=== PATIENT | female | born 1975 | race Caucasian/White ===

== ENCOUNTER → 2020-01-07 15:16 | Outpatient (CLI) | payer OTHER, SELFPAY ==
--- NOTE | ~2020-01-07 | US_ITS ---
US thyroid INDICATION: Thyroid goiter TECHNIQUE: Real-time sonographic images of the thyroid gland were obtained. COMPARISON: No prior studies for comparison. FINDINGS: The right thyroid lobe measures 3.4 x 0.8 x 0.7 cm. The left thyroid lobe measures 2.9 x 1 x 1 cm. There is normal echotexture and echogenicity throughout the thyroid gland. No discrete nodul es identified. Normal vascular flow is present. IMPRESSION: 1. Normal thyroid without discrete nodule or abnormal vascularity. Reviewed, dictated and finalized at location A.
== END ==
PROVIDERS: Visit Provider Internal Medicine Endocrinology, Diabetes & Metabolism
DX: E04.9 Nontoxic goiter, unspecified (principal)
CPT/HCPCS: 76536

== ENCOUNTER → 2020-02-07 14:04 | Outpatient (CLI) | payer OTHER, SELFPAY ==
--- NOTE | ~2020-02-07 | MM_ITS ---
EXAMINATION: MM screening kymberly BI w yayo HISTORY: Screening TECHNIQUE: Craniocaudal and mediolateral oblique 3-D tomosynthesis images were obtained and synthetic 2-D images were generated. CAD analysis was submitted and interpreted. COMPARISON: No prior mammogram is available for comparison at this institution. BREAST PARENCHYMAL COMPOSITION: There are scattered areas of fibroglandular density. FINDINGS: There is no evidence of suspicious mass, calcification, or architectural distortion to sugg est malignancy in either breast. There has been no suspicious interval change. IMPRESSION: 1. No mammographic evidence of malignancy. 2. Recommend routine screening mammography in one year. BI-RADS Category 1: Negative Reviewed, dictated and finalized at location A.
== END ==
PROVIDERS: PCP Nurse Practitioner Adult Health; Visit Provider Nurse Practitioner Adult Health
DX: Z12.31 Encounter for screening mammogram for malignant neoplasm of breast (principal)
CPT/HCPCS: 77063; 77067

== ENCOUNTER 2020-04-04 11:22 | Emergency (ER) | payer OTHER, SELFPAY ==
[2020-04-04 11:28] VITALS: BP 140/78; PULSE 87; RESP 15; TEMP 36.7; O2SAT 100
--- NOTE | 2020-04-04 12:06 | ED.EAR ---
HPI - Ear Problem General Chief complaint: Ear Stated complaint: Rash on Ears Time Seen by Provider: 04/04/20 12:00 Source: patient and RN notes reviewed Mode of arrival: ambulatory Limitations: no limitations History of Present Illness HPI Narrative: 44 year old female who present to [facility] care with complaints of having bilateral ear lobe swelling with itching behind both ears since Friday. Patient reports that she was outside all day on Friday and that evening is when she first noted the symptoms. Patient denies any new soaps, lotions, makeup, shampoo, no new food or medications, does not know of any exposure to any plants or other vegetation. Patient works from home and states that she has cleansed her headset and washed all of her masks thinking it could be from something on them. She denies any pain to her ears, no drainage, fevers or chills. Patient does take Zyrtec daily for seasonal allergies. MD Complaint: other (rash on ears) Location: bilateral Duration: intermittent Severity: mild Discharge from ear: Reports no Associated symptoms ear: ear swelling (lobes) Treatment prior to arrival: other (benadryl) Related Data Home Medications Medication Instructions Recorded Confirmed cetirizine [Zyrtec] 10 mg PO DAILY 04/04/20 04/04/20 levothyroxine [Tirosint] 112 mcg PO DAILY 04/04/20 04/04/20 lisinopril 5 mg PO DAILY 04/04/20 04/04/20 Allergies Allergy/AdvReac Type Severity Reaction Status Date / Time No Known Allergies Allergy Verified 11/19/18 10:41 Review of Systems Review of Systems: Narrative: CONSTITUTIONAL: Denies fever, chills, or sweats. EYES: Denies visual changes, redness, or discharge. ENT: Denies rhinorrhea, congestion, sore throat, or otalgia. CARDIOVASCULAR: Denies chest pain, palpitations, or edema. RESPIRATORY: Denies cough or dyspnea. GASTROINTESTINAL: Denies abdominal pain, nausea, vomiting, or diarrhea. GENITOURINARY: Denies dysuria or hematuria. SKIN: Positive reported rash or itching to area behind bilateral ears with swelling to earlobes MUSCULOSKELETAL: Denies back pain, joint pain, or myalgia. NEUROLOGIC: Denies headache, numbness, or weakness. PSYCHIATRIC: Denies anxiety or depression. All systems reviewed & are unremarkable except as noted in HPI and below PMFSH Past Medical History Medical History (Updated 04/06/20 @ 08:22 by Amaya Rachel NP) Hypertension Hypothyroid Seasonal allergies Surgical History Surgical History (Updated 04/06/20 @ 08:22 by Amaya Rachel NP) History of tubal ligation Family History Family History (Updated 12/23/13 @ 07:13 by DOCTOR UNKNOWN) Mother Hypertension Father Family history of elevated blood lipids Sibling Family history of muscular dystrophy Social History Social History (Updated 04/06/20 @ 08:22 by Amaya Rachel NP) Smoking status: Never smoker Second hand tobacco smoke exposure: No Alcohol intake: never Substance use: never Living arrangements: with family Gender identity (if verbalized by the patient): Female Comments At time of signature, agree with nursing past medical, surgical, social and family history. There is no relevant family history pertinent to the presenting complaint Exam Narrative: Exam Narrative: GENERAL: Well-appearing, well-nourished, and in no acute distress. HEAD: Normocephalic, atraumatic. EYES: PERRLA and EOMI. ENT: Nares clear, no rhinorrhea or epistaxis. Mucous membranes moist. Mild redness behind bilateral ears no rash noted minimal swelling to earlobes, TMs normal with good light reflex, throat pink no swelling or exudate no tonsillar enlargement NECK: Supple. No lymphadenopathy CHEST: Clear to auscultation. No respiratory distress. SaO2 100% on room air HEART: Regular rate and rhythm. No murmur heard. Normal peripheral pulses. ABDOMEN: Soft, nontender, nondistended, normal active bowel sounds. EXTREMITIES: Normal range of motion. No edema. SKIN: Warm, dry, no rash no
== END 2020-04-04 12:19 | disposition home or self-care (01) ==
PROVIDERS: Emergency Provider Registered Nurse; PCP Nurse Practitioner Adult Health
DX: L25.9 Unspecified contact dermatitis, unspecified cause (principal)
CPT/HCPCS: 99213; G0463

== ENCOUNTER 2022-08-16 08:23 | Emergency (ER) | payer OTHER, SELFPAY ==
[2022-08-16 08:33] VITALS: BP 125/60; PULSE 107; RESP 16; TEMP 37.2; O2SAT 99
--- NOTE | 2022-08-16 08:33 | ED.URI ---
HPI - URI/Sore Throat General Chief Complaint: Upper Respiratory Infection Stated Complaint: Sinus Time Seen by Provider: 08/16/22 08:33 Source: patient Mode of arrival: ambulatory Limitations: no limitations History of Present Illness HPI Narrative: Patient is a 46-year-old female that presents with sinus congestion, sinus pressure, sore throat and body aches since middle of last week. Patient states symptoms wax and wane depending on the weather. Patient takes a daily Zyrtec but has not helped her symptoms. Has not taken any other medications. Patient has been doing nasal rinses with no relief. Patient reports sinus drainage is yellow/green in color. Related Data Home Medications Medication Instructions Recorded Confirmed cetirizine 10 mg capsule (Zyrtec) 10 mg PO DAILY 04/04/20 08/16/22 levothyroxine 112 mcg capsule 112 mcg PO DAILY 04/04/20 08/16/22 (Tirosint) lisinopril 5 mg tablet 5 mg PO DAILY 04/04/20 08/16/22 Allergies Allergy/AdvReac Type Severity Reaction Status Date / Time No Known Allergies Allergy Verified 08/16/22 08:53 Review of Systems Review of Systems: All systems reviewed & are unremarkable except as noted in HPI and below Constitutional: Constitutional: Reports body ache(s), Denies fever(s), Denies headache(s), Denies malaise and Denies weakness Eyes: Eyes: Denies loss of vision ENT: Reports otalgia, Denies headache(s), Reports nasal congestion, Reports nasal discharge, Reports sinus pain and Reports sore throat Cardiovascular: Cardiovascular: Denies chest pain, Denies irregular heart rhythm and Denies dyspnea Respiratory: Respiratory: Denies cough and Denies dyspnea Gastrointestinal: Gastrointestinal: Denies abdominal pain, Denies melena, Denies hematochezia, Denies diarrhea, Denies nausea and Denies vomiting Musculoskeletal: Musculoskeletal: Denies back pain, Denies myalgias and Denies arthralgias Integumentary/Breasts: Skin/Breast: Denies pruritus and Denies rash Neurologic: Denies headache(s), Denies loss of vision and Denies weakness Psychiatric: Psychiatric: Reports no additional psychiatric complaints PMFSH Past Medical History Medical History (Updated 08/16/22 @ 09:04 by Ladonna Houston APRN) Hypertension Hypothyroid Seasonal allergies Surgical History Surgical History (Updated 04/06/20 @ 08:22 by Amaya Rachel NP) History of tubal ligation Family History Family History (Updated 12/23/13 @ 07:13 by DOCTOR UNKNOWN) Mother Hypertension Father Family history of elevated blood lipids Sibling Family history of muscular dystrophy Social History Social History (Updated 04/06/20 @ 08:22 by Amaya Rachel NP) Smoking status: Never smoker Second hand tobacco smoke exposure: No Alcohol intake: never Substance use: never Living arrangements: with family Gender identity (if verbalized by the patient): Female Comments At time of signature, agree with nursing past medical, surgical, social and family history. There is no relevant family history pertinent to the presenting complaint. Exam Const: General: cooperative, healthy appearing, comfortable, no acute distress and well nourished Nutritional Appearance: well nourished Orientation/consciousness: patient oriented x3 Limitations: no limitations HENMT: Head: normal to inspection, normocephalic and atraumatic Ears: hearing grossly normal bilaterally, external ears normal and TM's normal bilaterally Face/Nose/Sinus: Normal external nose present, Abnormal mucous membranes and turbinates present erythematous bilateral, Nasal discharge present mucoid, normal facial exam, sinuses nontender and face symmetric Face and sinus: normal facial exam, sinuses nontender and face symmetric Mouth: Yes Normal oral and palatal mucosa present, Yes lip normal and Yes moist mucous membranes Teeth and gingiva: dentition normal Throat: posterior oropharynx normal, tonsils normal, uvula midline and postnas
== END 2022-08-16 09:08 | disposition home or self-care (01) ==
PROVIDERS: Emergency Provider Nurse Practitioner Family; PCP Nurse Practitioner
DX: J32.9 Chronic sinusitis, unspecified (principal); I10 Essential (primary) hypertension; E03.9 Hypothyroidism, unspecified
CPT/HCPCS: 99213; G0463

== ENCOUNTER 2022-09-13 08:38 | Outpatient (CLI) | payer OTHER, SELFPAY ==
--- NOTE | 2022-09-13 08:51 | ECG_ITS ---
Measurements Intervals [place] Rate: 81 P: 15 AL: 131 QRS: 21 QRSD: 87 T: 15 QT: 366 QTc: 427 Interpretive Statements SINUS RHYTHM BASELINE ARTIFACT- I, II, III NORMAL ECG NO PREVIOUS ECG AVAILABLE FOR COMPARISON Electronically Signed On 09-13-2022 9:11:22 CDT by Nestor Burnham D.O.
[2022-09-13 10:28] LABS: Basophils Percent Auto 0.4 % (0.2-1.2); Eosinophils Absolute Auto 0.2 K/mm3 (0-0.3); Eosinophils Percent Auto 4.1 % (0-4.4); Hematocrit 39.4 % (37.0-47.0); Hemoglobin 12.7 g/dL (12.0-15.0); Immature Granulocyte Absolute 0.01 K/mm3 (0.00-0.031); Immature Granulocyte Percent A 0.2 % (0-0.5); Lymphocytes Absolute Auto 2.28 K/mm3 (0.9-3.2); Lymphocytes Percent Auto 44.3 % (18.3-44.2); Mean Corpuscular HGB Conc 32.2 g/dl (32-36); Mean Corpuscular Hemoglobin 30.1 pg (26-34); Mean Corpuscular Volume 93.4 fl (80-100); Mean Platelet Volume 9.8 fl (7.4-10.4); Monocytes Absolute Auto 0.5 K/mm3 (0.1-0.6); Monocytes Percent Auto 10.5 % (2.6-8.5); Neutrophils Absolute Auto 2.1 K/mm3 (1.3-6.7); Neutrophils Percent Auto 40.5 % (45.5-73.1); Platelet Count Result 368 k/mm3 (150-375); Red Blood Count 4.22 M/mm3 (4.2-5.4); White Blood Count 5.2 K/mm3 (4.5-10.0)
== END 2022-09-13 08:39 | disposition home or self-care (01) ==
LOC: ANHSURGERY 08:41
PROVIDERS: PCP Nurse Practitioner; Visit Provider Obstetrics & Gynecology
DX: N85.2 Hypertrophy of uterus (principal); I10 Essential (primary) hypertension; Z01.818 Encounter for other preprocedural examination
CPT/HCPCS: 36415; 85025; 86850; 86900; 86901; 93005

== ENCOUNTER 2022-09-20 02:22 | Day surgery (SDC) | payer OTHER, SELFPAY ==
[2022-09-11 14:00] VITALS: BMI 32.1
--- NOTE | 2022-09-11 14:01 | SUR.PREOP ---
Report to the Outpatient Waiting Room, entrance under the green pavilion located off [facility], at time _0930 on date _09/20/22 . Planned Procedure Time: _1130 . Time changes happen often and if your time is changed the preop area will call you the afternoon before. - You and your visitor will be asked to self-screen and do not enter if you have any COVID symptoms. - A mask is optional within the hospital at this time. Patients may have clear liquids (water, carbonated beverages, clear teas, apple juice) until 3 hours prior to surgery with a maximum of 20 ounces. - No food from midnight until time of surgery 0830 - Infants may have breast milk until 4 hours before surgery, infant formula 6 hours prior to surgery. - Children will be allowed to drink immediately following surgery. If applicable, please bring a bottle or sippy cup to assist with drinking. Juice, water, soda, and popsicles are readily available. For infants on formula, please bring formula the day of surgery. Pacifiers are allowed. Take the following medications with a SIP of water the morning of surgery: __LEVOTHYROXINE DO NOT STOP ANY OF YOUR OTHER PRESCRIPTION MEDICATIONS PRIOR TO SURGERY ?EXCEPT THE FOLLOWING Medications to discontinue per physician ____VITAMIN M65 Date to take last dose__09/17/22 Please no make-up, nail iranian, hairspray, perfume, deodorant, or body powder the day of surgery. No jewelry (including any body piercings) or valuables the day of surgery, leave them at home. Please take a shower or bath the night before, or the morning of, surgery with an antibacterial soap. Wear comfortable, loose fitting clothing. Children are encouraged to wear pajamas. - Jewelry must be removed prior to entering the operating room. Rings and piercings that are not removed may be cut off. - The hospital will not accept responsibility for valuables. - Please leave all valuables, including medications, at home the day of surgery. If you are going home after surgery, a licensed driver's license examiner must drive you home. - NO public transportation without another adult if you receive anesthesia. - We recommend that an adult stay with you for 24 hours following discharge. - We also recommend that you do not drive, make important decision, drink alcoholic beverages, or take any drugs that were not prescribed by your health care provider for at least 24 hours after your discharge time. For Pediatric surgeries, we recommend two adults accompany the child home. Follow any additional instructions given to you from your surgeon. If you or anyone in your household have experienced Covid symptoms in the past week, please notify your surgeon or the nurse liaison at the phone number below for possible testing. Telephone instructions given to BONNIE EDWARDS and asked if any additional questions and then verbalized understanding. Patient advised to call surgeon office or pre surgery nurse liaison [phone] if any additional questions.
--- NOTE | 2022-09-19 07:35 | P.HP_ITS ---
H&P: HPI History of Present Illness Date/Time: 09/19/22 07:35 Chief Complaint: pelvic pain/ enlarged uterus/uterine prolapse Narrative: 46-year-old female 2 para 2 who is admitted for robotic total hyste rectomy and bilateral salpingectomy secondary to enlarged uterus pelvic pain and uterine prolapse. Risks and benefits of this procedure reviewed including not exclusive of , aspiration pneumonia, bleeding, transfusion, perforation injury to bowel, bladder, ureters, or other internal organs with need for open laparotomy. She received the ACOG handout entitled hysterectomy as well as the de Tomasz handout. She had all questions answered. She asked to proceed PMFSH Past Medical History Medical History Hypertension Hypothyroid Seasonal allergies Surgical History Surgical History History of tubal ligation Family History Family History Mother Hypertension Father Family history of elevated blood lipids Sibling Family history of muscular dystrophy Social History Social History Smoking status: Never smoker Second hand tobacco smoke exposure: No Alcohol intake: never Substance use: never Living arrangements: with family Gender identity (if verbalized by the patient): Female Spiritual care concerns: No Meds Home Medications and Allergies Home Medications Medication Instructions Recorded Confirmed Type cetirizine 10 mg capsule (Zyrtec) 10 mg PO DAILY 04/04/20 09/11/22 History levothyroxine 112 mcg capsule 112 mcg PO DAILY 04/04/20 09/11/22 History (Tirosint) lisinopril 5 mg tablet 5 mg PO DAILY 04/04/20 09/11/22 History cyanocobalamin (vitamin B-12) 1,000 mcg DAILY 09/11/22 History 1,000 mcg/mL injection solution montelukast 10 mg tablet 10 mg PO DAILY 09/11/22 09/11/22 History (Singulair) Allergies Allergy/AdvReac Type Severity Reaction Status Date / Time No Known Allergies Allergy Verified 09/11/22 13:34 Exam Const: General: cooperative, healthy appearing, comfortable and overweight Orientation/consciousness: oriented to person, oriented to place and oriented to time HENMT: Head: normal to inspection Resp: Effort & Inspection: normal respiratory effort Cardio: Rate: regular rate Rhythm: regular rhythm Heart sounds: S1 normal heart sound present and S2 normal heart sound present GI: Inspection: normal to inspection : External Female Exam: normal external appearance Speculum Exam - Vagina: normal appearance of the vagina Speculum Exam - Cervix: normal appearance of the cervix ( second-degree prolapse present) Bimanual exam- vagina & uterus: enlarged and Uterine tenderness Bimanual Exam- Adnexa, other: normal adnexae Assessment and Plan Assessment and plan (1) Enlarged uterus: Code(s): N85.2 - Hypertrophy of uterus Status: Acute (2) Uterine prolapse: Code(s): N81.4 - Uterovaginal prolapse, unspecified Status: Acute (3) Pelvic pain: Code(s): R10.2 - Pelvic and perineal pain Status: Acute Plan robotic total vaginal hysterectomy bilateral salpingectomy
[2022-09-20] VITALS (10 sets, daily range): BP systolic 110–121; BP diastolic 60–75; PULSE 84–104; RESP 13–20; TEMP 36.1–36.6; O2SAT 96–100
--- NOTE | 2022-09-20 06:28 | WPDHPUPDATE1 ---
History and Physical Update Update Date/Time: 09/20/22 06:28 History and Physical has been reviewed, including an updated exam of the patient. There are NO changes in the patient's condition. Risks, benefits, and alternatives have been discussed and questions answered. Patient agrees to proceed with procedure.
[2022-09-20] MEDS: LACTATED RINGERS 1,000 ML 30 ML IV CONT ×2 (10:20→12:31)
[2022-09-20] MEDS: ACETAMINOPHEN 500 MG TABLET 1000 MG PO (10:23)
[2022-09-20] MEDS: KETOROLAC 15 MG/ML VIAL (*BKC) IV PUSH (10:24)
--- NOTE | 2022-09-20 11:11 | WPDANESEPPF ---
Anes - Initial Pre Proc Eval Procedure: Operation Date: 09/20/22 11:30 Proposed Procedures p Robotic Assisted Total Vaginal Hysterectomy with Bilateral Salpingectomy - Evgeny Pillai MD Date/Time: 09/20/22 11:11 Surgeon: Evgeny Pillai MD Pre Op Diagnosis: Pelvic Pain,Enlarged Uterus, Pelvic Prolapse Patient Data Age: 46 Gender: F Height: 1.62 m Weight: 88.3 kg Last Vital Signs Temp 97.0 F L 09/20/22 09:48 Pulse 86 09/20/22 09:48 Resp 16 09/20/22 09:48 BP 113/72 09/20/22 09:48 Pulse Ox 100 09/20/22 09:48 O2 Del Method Room Air 09/20/22 09:48 Allergies Allergy/AdvReac Type Severity Reaction Status Date / Time No Known Allergies Allergy Verified 09/11/22 13:34 Home Medications Medication Instructions Recorded Confirmed Type cetirizine 10 mg capsule (Zyrtec) 10 mg PO DAILY 04/04/20 09/20/22 History levothyroxine 112 mcg capsule 112 mcg PO DAILY 04/04/20 09/20/22 History (Tirosint) lisinopril 5 mg tablet 5 mg PO DAILY 04/04/20 09/20/22 History cyanocobalamin (vitamin B-12) 1,000 mcg DAILY 09/11/22 History 1,000 mcg/mL injection solution montelukast 10 mg tablet 10 mg PO DAILY 09/11/22 09/20/22 History (Singulair) hydrocodone 5 mg-acetaminophen 325 1 tablet PO Q4H PRN pain #30 tabs 09/20/22 Rx mg tablet Patient hx anesthesia problems: none Family hx anesthesia problems: none Results Review: All pre-operative results and documents have been reviewed as part of the pre-operative evaluation. [facility] Past Medical History Medical History Hypertension Hypothyroid Seasonal allergies Surgical History Surgical History History of tubal ligation Family History Family History Mother Hypertension Father Family history of elevated blood lipids Sibling Family history of muscular dystrophy Social History Social History Smoking status: Never smoker Second hand tobacco smoke exposure: No Alcohol intake: never Substance use: never Living arrangements: with family Gender identity (if verbalized by the patient): Female Spiritual care concerns: No Anes - Eval Final PreProcedure Day of Procedure 09/20/22 11:11 Patient weight: normal Heart: regular rate and rhythm Lungs: clear to auscultation Airway: Mallampati scale class III Neurological: alert and oriented Last oral intake: >/= 8 hours ASA classification: II Emergent: no Anesthetic plan: proceed Anesthesia type and monitoring: general ETT and standard monitoring Results Review: All pre-operative results and documents have been reviewed as part of the pre-operative evaluation. Informed Consent: The patient's anesthetic plan and its attendant risks and benefits were discussed with the patient/family/POA. Questions were solicited and answers provided to the satisfaction of the patient/family/POA.
[2022-09-20] MEDS: ceFAZolin 2 GM/D5W 50 ML 2 GM/50 ML BAG IVPB (11:13)
--- NOTE | 2022-09-20 12:12 | W.PM.PROC2 ---
Procedure Note - Detailed Date of Procedure 09/20/22 Pre-op Diagnosis Pelvic Pain,Enlarged Uterus, Pelvic Prolapse Post-op Diagnosis Same Procedure Performed Robotic total vaginal hysterectomy and bilateral salpingectomy Surgeon Evgeny Pillai MD Anesthesia General Indications is a 46-year-old female with pain bleeding dyspareunia prolapse Findings markedly enlarged uterus. Tubes status post tubal ligation. Benign-appearing ovaries Description of Procedure patient was prepped draped in normal sterile fashion placed in dorsal lithotomy position. Under excellent general trach anesthesia weighted speculum placed in posterior fornix vagina. Anterior lip of the cervix grasped with single-tooth tenaculum. Uterus sounded to 12cm. Serial dilatation with fragmented dilators performed followed by passage by the 10. CLOVER and the 3. 0.5 cold cup. Next the 16 [place] catheter was placed in the bladder and drained clear urine. The weighted speculum and single-tooth removed the gloves were changed. Supraumbilical incision made the Veress needle passed in the abdomen. Abdomen filled with CO2 gas [id number]. The 8mm trocar advanced in the abdomen. Downside visualized no injury seen. Patient placed in Trendelenburg 20? and right left lateral quadrant incisions made. 8Mm trocars advanced under direct visualization assuring injury. Right upper quadrant incision made the 8mm trocar advanced under direct visualization assuring no injury. Robot was docked. Attention was turned to the counselor/art therapist. The left round ligament grasped, burned, cut. Anteriorly bladder flap was formed by sharply dissecting the peritoneum and reflecting it caudally away from the cervix and uterus to the opposite round ligament which was clamped, burned, cut. Next the undivided fallopian tube was dissected away from the ovarian complex at its distal end and passed through the right upper quadrant incision. The stump was left attached to the origin of the uterus. This was repeated in the same fashion on the right. The utero-ovarian ligament on the left was skeletonized to conserve the left ovary clamped burned cut and brought to the level of previously cut round ligament. In like fashion the right ovary was conserved by clamping burning and cutting the utero-ovarian ligament and brain as to level previously cut round ligament. The cardinal broad ligaments were serially skeletonized clamping burning cutting hugging the uterus cervix to down to the uterine vessels on the left. These were then individually clamped, burned, cut. The right cardinal broad ligaments were skeletonized clamping burning cutting and bringing these down the lateral edge of the uterus until the large uterine vessels could be seen on the right. These were individually clamped each were noted be very tortuous. Blanching the uterus was noted and a colpotomy incision made. Cervix uterus stumps of tubes removed through the vagina. The vagina was then closed with continuous running 0V lock from lateral edge to lateral edge back to midline. Irrigation undertaken to clear blood loss estimated 25cc. [place] term was placed over the raw surface areas. The robot was undocked. The gas removed from the abdomen the trocars removed. The incisions closed with 4 Monocryl and glue. The patient went to recovery in satisfactory condition. All sponge, needle, instrument counts were correct. There were no immediate complications noted Estimated Blood Loss 25 Drains No Packing No Pathology Yes Complications No immediate complications Condition Stable Disposition PACU
--- NOTE | 2022-09-20 12:16 | P.DS_ITS ---
DS: Admitting Diagnosis Discharge Date 09/21/2022 Admitting Diagnosis pelvic pain/ enlarged uterus/uterine prolapse DS: Discharge Diagnosis Discharge Diagnosis (1) Pelvic pain: Code(s): R10.2 - Pelvic and perineal pain Status: Acute (2) Uterine prolapse: Code(s): N81.4 - Uterovaginal prolapse, unspecified Status: Acute (3) Enlarged uterus: Code(s): N85.2 - Hypertrophy of uterus Status: Acute DS: Summary Hospital Course Reason for hospitalization: the patient was admitted for robotic total vaginectomy and bilateral salpingectomy Hospital Course: the patient underwent an unremarkable robotic total vaginectomy and bilateral s alpingectomy on 09/20/2022. Hospital course was unremarkable. She remained afebrile. She was up, voiding without difficulty, ambulating, eating regular diet, and generally soft complaints. Time Spent with Patient Time attestation: Total time spent providing and/or coordinating discharge services: Exam Const: General: cooperative, healthy appearing and comfortable Nutritional Appearance: average body habitus Orientation/consciousness: oriented to person, oriented to place and oriented to time HENMT: Head: normal to inspection Resp: Effort & Inspection: normal respiratory effort Cardio: Rate: regular rate Rhythm: regular rhythm Heart sounds: S1 normal heart sound present and S2 normal heart sound present GI: Inspection: normal to inspection and incision ( Wounds are clean dry and intact) DS: Data Data Completed and Pending Pending studies at discharge: Pending at discharge 09/20/22 12:06 Surgical [PTH] Routine Discharge Plan Discharge Patient Disposition: Home, Self-Care Stand Alone Forms: General Discharge Instructions Follow-up/Referrals: Evgeny Bonilla MD [Physician] - Discharge Medications: New hydrocodone-acetaminophen 5-325 mg tablet 1 tablet PO Q4H PRN (Reason: pain) Qty: 30 0RF No Action lisinopril 5 mg tablet 5 mg PO DAILY levothyroxine [Tirosint] 112 mcg capsule 112 mcg PO DAILY Zyrtec 10 mg Capsule 10 mg PO DAILY cyanocobalamin (vitamin B-12) 1,000 mcg/mL solution 1,000 mcg DAILY montelukast [Singulair] 10 mg Tablet 10 mg PO DAILY
[2022-09-20] MEDS: fentaNYL CITRATE INJ (*CRX) 100 MCG/2 ML VIAL 25 MCG IV PUSH ×4 (13:12→13:45)
--- NOTE | 2022-09-20 14:05 | PC.NURSE ---
This patient, Yamilka Al, was received from PACU on 09/20/22 at 1405. Patient/family oriented to unit policies and routines
[2022-09-20] MEDS: DEXTROSE 5%/LACTATED RINGERS 1,000 ML 125 ML IV CONT (14:19)
[2022-09-20] MEDS: KETOROLAC 30 MG/ML VIAL (*BKC) IV PUSH (14:26)
--- NOTE | 2022-09-20 14:45 | PC.NURSE ---
Patient talked about possibly going home this evening and was concerned about getting her pain medication for home if she was able to be discharged later. RX for her pain medication was given to her who was going to have the RX filled if she did end up being discharged this evening.
--- NOTE | 2022-09-20 16:15 | PC.NURSE ---
Spoke with patient regarding discharge this evening and she would like to stay overnight and be discharged in the morning. Her RX for pain medication is in the patient's room.
[2022-09-20] MEDS: DOCUSATE SODIUM 100 MG CAPSULE PO (18:00)
[2022-09-20] MEDS: SIMETHICONE 80 MG TAB.CHEW PO ×2 (18:00→21:56)
[2022-09-20] MEDS: HYDROcodone/acetaminophen (*CRX) 5-325 MG TABLET 1 TAB PO (18:00)
[2022-09-20] MEDS: IBUPROFEN 600 MG TABLET PO (21:56)
[2022-09-20] MEDS: HYDROcodone/acetaminophen (*CRX) 10-325 MG TABLET 1 TAB PO (21:56)
[2022-09-21 04:30] VITALS: BP 117/76; PULSE 78; RESP 16; TEMP 36.3
[2022-09-21] MEDS: SIMETHICONE 80 MG TAB.CHEW PO (04:36)
[2022-09-21] MEDS: HYDROcodone/acetaminophen (*CRX) 10-325 MG TABLET 1 TAB PO ×2 (04:36→10:20)
[2022-09-21] MEDS: IBUPROFEN 600 MG TABLET PO (04:36)
[2022-09-21 05:41] LABS: Basophils Percent Auto 0.2 % (0.2-1.2); Hematocrit 34.5 % (37.0-47.0); Hemoglobin 11.2 g/dL (12.0-15.0); Immature Granulocyte Absolute 0.05 K/mm3 (0.00-0.031); Immature Granulocyte Percent A 0.3 % (0-0.5); Lymphocytes Absolute Auto 2.13 K/mm3 (0.9-3.2); Lymphocytes Percent Auto 13.9 % (18.3-44.2); Mean Corpuscular HGB Conc 32.5 g/dl (32-36); Mean Corpuscular Hemoglobin 29.5 pg (26-34); Mean Corpuscular Volume 90.8 fl (80-100); Mean Platelet Volume 9.8 fl (7.4-10.4); Monocytes Absolute Auto 0.9 K/mm3 (0.1-0.6); Monocytes Percent Auto 5.8 % (2.6-8.5); Neutrophils Absolute Auto 12.2 K/mm3 (1.3-6.7); Neutrophils Percent Auto 79.8 % (45.5-73.1); Platelet Count Result 327 k/mm3 (150-375); Red Cell Distribution Width 12.5 % (11.5-14.5); White Blood Count 15.3 K/mm3 (4.5-10.0)
--- NOTE | 2022-09-21 06:35 | PM.GYNPNOP ---
[employer] - A/P Postoperative Procedures: Procedures Operation Date: 09/20/22 11:30 Actual Procedure Side Surgeon p Robotic Assisted Total Vaginal Hysterectomy with Bilateral Salpingectomy Bilateral Evgeny Pillai MD Postoperative day: 1 Postoperative status: doing well Postoperative plan: routine post-op care, ambulate, advance diet and discharge Time Spent With Patient Time: Total time spent is greater than 50% in coordination of care (as documented) at patient's floor/unit and/or counseling patient: Time with patient: less than 15 minutes [employer]- PN:Subj Post-Op Subjective Date/time seen: 09/21/22 06:35 Subjective: patient has no complaints, patient desires discharge, pain is well controlled and patient is tolerating oral intake Exam Const: General: cooperative, healthy appearing and comfortable Nutritional Appearance: average body habitus Orientation/consciousness: oriented to person, oriented to place and oriented to time HENMT: Head: normal to inspection Resp: Effort & Inspection: normal respiratory effort Cardio: Rate: regular rate Rhythm: regular rhythm Heart sounds: S1 normal heart sound present and S2 normal heart sound present GI: Inspection: normal to inspection and incision ( wounds clean dry and intact) [employer] - PN: Obj Data Vital Signs Vital Signs: Vital Signs - 24 hr 09/20/22 09:48 09/20/22 12:31 09/20/22 12:45 Temperature 97.0 F L Pulse Rate 86 89 89 Respiratory Rate 16 13 17 Blood Pressure 113/72 110/63 119/65 Pulse Oximetry 100 100 98 Oxygen Delivery Room Air Simple Face Mask Room Air Oxygen Flow Rate 8 09/20/22 13:00 09/20/22 13:15 09/20/22 13:30 Temperature Pulse Rate 84 86 90 Respiratory Rate 20 14 14 Blood Pressure 115/72 117/60 121/69 Pulse Oximetry 96 97 98 Oxygen Delivery Room Air Room Air Room Air Oxygen Flow Rate 09/20/22 13:45 09/20/22 13:56 09/20/22 14:10 Temperature 98 F Pulse Rate 93 90 86 Respiratory Rate 14 14 16 Blood Pressure 116/67 112/66 112/66 Pulse Oximetry 98 98 99 Oxygen Delivery Room Air Room Air Oxygen Flow Rate 09/20/22 19:00 09/21/22 04:30 Temperature 97.7 F 97.4 F L Pulse Rate 104 H 78 Respiratory Rate 16 16 Blood Pressure 121/75 117/76 Pulse Oximetry Oxygen Delivery Oxygen Flow Rate Intake/Output Intake/Output: Intake & Output 09/18/22 09/19/22 09/20/22 09/21/22 23:59 23:59 23:59 23:59 Intake Total 400 Output Total 330 Balance 70 Meds/Results Medications: Active Medications Generic Name Dose Route Start Last Admin Trade Name Freq PRN Reason Stop Dose Admin Hydrocodone Bitart/Acetaminophen 1 tab 09/20/22 13:57 09/21/22 04:36 Hydrocodone/Acetaminophen (*Crx) 10-325 Mg Tablet PO 1 tab Q3H PRN Administration Pain Rated 6 or Greater Hydrocodone Bitart/Acetaminophen 1 tab 09/20/22 13:57 09/20/22 18:00 Hydrocodone/Acetaminophen (*Crx) 5-325 Mg Tablet PO 1 tab Q3H PRN Administration Pain Rated 5 or Less Docusate Sodium 100 mg 09/20/22 17:00 09/20/22 18:00 Docusate Sodium 100 Mg Capsule PO 100 mg BID AMARA Administration Enoxaparin Sodium 40 mg 09/21/22 09:00 Enoxaparin 40 Mg/0.4 Ml Syringe SUB-Q DAILY [facility] Ibuprofen 600 mg 09/20/22 13:57 09/21/22 04:36 Ibuprofen 600 Mg Tablet PO 600 mg Q6H PRN Administration Cramping Ketorolac Tromethamine 30 mg 09/20/22 13:57 09/20/22 14:26 Ketorolac 30 Mg/Ml Vial (*Bkc) IV PUSH 09/25/22 13:56 30 mg Q6H PRN Administration Pain Rated 4-6 Naloxone HCl 0.1 mg 09/20/22 13:57 Naloxone Hcl 0.4 Mg/Ml Vial IV PUSH Q2M PRN Respiratory rate less than 10 Ondansetron HCl 4 mg 09/20/22 13:57 Ondansetron Inj 4 Mg/2 Ml Vial IV PUSH Q6H PRN Nausea And Vomiting Simethicone 80 mg 09/20/22 13:57 09/21/22 04:36 Simethicone 80 Mg Tab.Chew PO 80 mg Q2H PRN Administration Gas Labs 09/21/22 05:12 Labs: Laboratory Res
--- NOTE | 2022-09-21 07:44 | P.PNAN_ITS ---
Anes - Prog Note Post-Op Date/Time: 09/21/22 07:44 Cardiovascular status: normal Respiratory status: normal Airway patency: baseline Mental status: baseline Post-Op hydration status: normal Vital Signs: Last Vital Signs Temp 36.3 C L 09/21/22 04:30 Pulse 78 09/21/22 04:30 Resp 16 09/21/22 04:30 BP 117/76 09/21/22 04:30 Pulse Ox 99 09/20/22 14:10 O2 Del Method Room Air 09/20/22 13:56 O2 Flow Rate 8 09/20/22 12:31 Pain Score (VAS): 2 I/O: Intake & Output 09/20/22 09/20/22 09/21/22 15:59 23:59 07:59 Intake Total 350 50 Output Total 130 200 Balance 220 -150 Laboratory Tests 09/21/22 05:12 09/21/22 05:12 WBC 15.3 H RBC 3.80 L Hgb 11.2 L Hct 34.5 L MCV 90.8 MCH 29.5 MCHC 32.5 RDW 12.5 Plt Count 327 MPV 9.8 Immature Gran % (Auto) 0.3 Neut % (Auto) 79.8 H Lymph % (Auto) 13.9 L [place] % (Auto) 5.8 Eos % (Auto) 0.0 Baso % (Auto) 0.2 Lymph # (Auto) 2.13 [place] # (Auto) 0.9 H Eos # (Auto) 0.0 Baso # (Auto) 0.0 Abs Immat Gran (auto) 0.05 H Absolute Neuts (auto) 12.2 H Absolute Nucleated RBC 0.0 Nucleated RBC % 0.0 Post-procedural complaints: none Patient Feedback: Patient satisfied with anesthetic care.
[2022-09-21] MEDS: DOCUSATE SODIUM 100 MG CAPSULE PO (10:20)
[2022-09-21] MEDS: ENOXAPARIN 40 MG/0.4 ML SYRINGE SUB-Q (10:20)
[2022-09-21 10:30] VITALS: BP 124/64; PULSE 91; RESP 14; TEMP 36.8; O2SAT 99
== END 2022-09-21 12:10 | disposition home or self-care (01) ==
LOC: ANHSURGERY 09:32 → ANHOB2 14:01
PROVIDERS: PCP Nurse Practitioner; Visit Provider Obstetrics & Gynecology
PROC: (CPT 58552; principal; 2022-09-20 11:30)
DX: N81.4 Uterovaginal prolapse, unspecified (principal); R10.2 Pelvic and perineal pain; N94.10 Unspecified dyspareunia; N72 Inflammatory disease of cervix uteri; N83.8 Other noninflammatory disorders of ovary, fallopian tube and broad ligament; I10 Essential (primary) hypertension; E03.9 Hypothyroidism, unspecified
CPT/HCPCS: 58552; S2900; 36415; 85025; 86850; 86900; 86901; 88307; 93005; 99199; A9270; J0330; J0690; J1100; J1170; J1650; J1885; J2250; J2405; J2704; J2710; J3010; J7030; J7120; J7121

== ENCOUNTER 2023-03-15 10:09 | Emergency (ER) | payer OTHER, SELFPAY ==
[2023-03-15 10:42] VITALS: BP 126/75; PULSE 97; RESP 16; TEMP 36.8; O2SAT 99
--- NOTE | 2023-03-15 11:34 | ED.GENADULT ---
HPI - General Adult General Chief complaint: Upper Respiratory Infection Stated complaint: congestion,cough, pressure Time Seen by Provider: 03/15/23 11:25 Source: patient Mode of arrival: ambulatory Limitations: no limitations History of Present Illness HPI narrative: 47-year-old female patient presents to the [facility] with complaints of sinus pressure to the right side of the head, congestion and cough. Patient states symptoms started about 2-3 days ago. Denies fevers, body aches or chills. Patient states she does take an antihistamine daily and has tried taking [id number] medication. Patient states that today she coughed up some yellow/green phlegm and was concerned that she had a sinus infection would come in to be seen. Denies abdominal pain, nausea, vomiting or diarrhea. Related Data Home Medications Medication Instructions Recorded Confirmed cetirizine 10 mg capsule (Zyrtec) 10 mg PO DAILY 04/04/20 09/20/22 levothyroxine 112 mcg capsule 112 mcg PO DAILY 04/04/20 09/20/22 (Tirosint) lisinopril 5 mg tablet 5 mg PO DAILY 04/04/20 09/20/22 cyanocobalamin (vitamin B-12) 1,000 mcg DAILY 09/11/22 1,000 mcg/mL injection solution montelukast 10 mg tablet 10 mg PO DAILY 09/11/22 09/20/22 (Singulair) Allergies Allergy/AdvReac Type Severity Reaction Status Date / Time No Known Allergies Allergy Verified 03/15/23 11:07 Review of Systems Review of Systems: CONSTITUTIONAL: Denies fever, chills, or sweats. EYES: Denies visual changes, redness, or discharge. ENT: Positive rhinorrhea, congestion, denies sore throat, or otalgia. CARDIOVASCULAR: Denies chest pain, palpitations, or edema. RESPIRATORY: Positive cough denies dyspnea. GASTROINTESTINAL: Denies abdominal pain, nausea, vomiting, or diarrhea. GENITOURINARY: Denies dysuria or hematuria. SKIN: Denies rash or itching. MUSCULOSKELETAL: Denies back pain, joint pain, or myalgia. NEUROLOGIC: Positive headache, denies numbness, or weakness. PSYCHIATRIC: Denies anxiety or depression. [facility] Past Medical History Medical History Hypertension Hypothyroid Seasonal allergies Surgical History Surgical History History of tubal ligation Family History Family History Mother Hypertension Father Family history of elevated blood lipids Sibling Family history of muscular dystrophy Social History Social History Smoking status: Never smoker Second hand tobacco smoke exposure: No Alcohol intake: never Substance use: never Living arrangements: with family Gender identity (if verbalized by the patient): Female Spiritual care concerns: No Comments At the time of my signature I agree with nursing past medical history, surgical, social, and family history. There is no relevant family history pertinent to the presenting complaint. Exam Narrative: GENERAL: Well-appearing, well-nourished, and in no acute distress. HEAD: Normocephalic, atraumatic. Slight tenderness to the right sinuses on palpation EYES: PERRLA and EOMI. ENT: Nares erythema edema noted bilaterally, no rhinorrhea or epistaxis. Mucous membranes moist. Posterior pharynx with no erythema, tonsillar enlargement, exudates or lesions present. Bilateral TMs are clear no erythema foreign bodies canal. NECK: Supple. No lymphadenopathy CHEST: Clear to auscultation. No respiratory distress. HEART: Regular rate and rhythm. No murmur heard. Normal peripheral pulses. ABDOMEN: Soft, nontender, nondistended, normal active bowel sounds. EXTREMITIES: Normal range of motion. No edema. SKIN: Warm, dry, no rash. NEURO: No focal deficits. Alert and oriented x3. Course Course Level of Care: Express Care Visit Vital Signs Vital signs: Vital Signs Temperature 36.8
== END 2023-03-15 11:55 | disposition home or self-care (01) ==
PROVIDERS: Emergency Provider Nurse Practitioner Family; PCP Nurse Practitioner
DX: J32.9 Chronic sinusitis, unspecified (principal); I10 Essential (primary) hypertension; E03.9 Hypothyroidism, unspecified
CPT/HCPCS: 99213; G0463